=== PATIENT | female | born 1970 | race Caucasian/White ===

== ENCOUNTER 2018-07-08 07:20 | Day surgery (SDC) | payer BC, MEDICARE ==
[2018-07-08] MEDS ORDERED: PROPOFOL 10 MG/ML VIAL IV ONE (07:21)
[2018-07-08] MEDS ORDERED: LIDOCAINE 1% W/EPI 1:200,000 MPF 30ML SQ ONE (07:21)
[2018-07-08] MEDS ORDERED: FENTANYL PF 100MCG/2ML VIAL IV ONE (07:21)
[2018-07-08] MEDS ORDERED: KETAMINE HCL 100MG/1ML VIAL INJ ONE (07:21)
[2018-07-08] MEDS ORDERED: BUPIVACAINE 0.5% W/EPI MPF 30 ML VIAL IVP ONE (07:21)
[2018-07-08] MEDS ORDERED: LIDOCAINE 2% MDV (20MG/ML) 20ML VIAL IV ONE (07:21)
[2018-07-08] MEDS ORDERED: DEXAMETHASONE PRESERVATIVE FREE 10MG/ML VIAL IV ONE (07:21)
[2018-07-08] MEDS ORDERED: MIDAZOLAM HCL 2MG/2ML VIAL IV ONE (07:21)
--- NOTE | 2018-07-09 07:00 | Operative Note - [place] ---
DATE OF SURGERY: 07/08/2018. PRIMARY CARE PHYSICIAN: Dr. Fernie Ann PREOPERATIVE DIAGNOSIS: CERVICAL SPONDYLOSIS WITHOUT MYELOPATHY, ICD-10 CODE M47.812. POSTOPERATIVE DIAGNOSIS: CERVICAL SPONDYLOSIS WITHOUT MYELOPATHY, ICD-10 CODE M47.812. PROCEDURE: Radiofrequency rhizotomy was performed of the bilateral cervical facets at 3-4 and 4-5. ANESTHESIA: Local sedation. ANESTHESIA PROVIDER: Robe Rosales CRNA. INDICATIONS: This patient presents with primary neck pain. Examination shows tenderness in the cervical spine. Range of motion does cause pain in the neck with extension. Diagnostic studies show multilevel spondylosis. A previous facet series gave the patient 75 percent relief. Due to the failure of therapies and the success of the facet series, the patient presents for rhizotomy for more long-term relief. DESCRIPTION OF PROCEDURE: Intravenous lines, vital sign monitoring, and intravenous sedation. Prepped and draped with sterile technique. Under imaging the cervical facets in the area of pain at 3-4 and 4-5 were identified and marked bilaterally. Each one of these points on the skin was infiltrated. A 20-gauge rhizotomy cannula was positioned. Stimulation trial was conducted, and rhizotomy burn was performed at 80 degrees for 90 seconds at each of the sites bilaterally. The procedure was atraumatic with no unusual side effects and no complications. Local with anti-inflammatory into the sites. Topical antibiotic and sterile dressing applied. She was transported to the recovery room stable. Will monitor and evaluate. cc: Dr. Fernie Ann Job Number: [id number]
== END 2018-07-08 10:40 | disposition home or self-care (01) ==
LOC: SUR 07:20
PROVIDERS: ATTEND Pain Medicine Interventional Pain Medicine
DX: M47.812 Spondylosis without myelopathy or radiculopathy, cervical region (principal); E11.9 Type 2 diabetes mellitus without complications; Z79.4 Long term (current) use of insulin; E78.00 Pure hypercholesterolemia, unspecified; G62.9 Polyneuropathy, unspecified; Z98.84 Bariatric surgery status
CPT/HCPCS: 64633; 64634; 01936; 81025; J1100; J3010; J3490